=== PATIENT | male | born 1975 | race Caucasian/White ===

== ENCOUNTER 2018-08-13 10:04 | Emergency (ER) | payer SELFPAY ==
[~2018-08-13] VITALS: Ht 190.5 cm; Wt 120.9 kg
[~2018-08-13 10:04] MED LIST: ADVIL200 MG PO; NORCO 325 MG-7.1 TAB PO; PRILOSEC 20MG20 MG PO
[2018-08-13 10:09] VITALS: BP 178/88; TEMP 96.7
[2018-08-13 10:56] LABS: HEMATOCRIT 38.2 % (42.0-52.0); HEMOGLOBIN 12.6 g/dl (13.5-18.0); MEAN CELL VOLUME 88 fl (80.0-100.0); MEAN CORPUSCULAR HEMOGLOBIN 29 pg (27.0-31.0); MEAN CORPUSCULAR HGB CONC 33 g/dl (33.0-37.0); MEAN PLATELET VOLUME 10.4 fl (7.4-10.4); PLATELET COUNT 215 K/mm3 (130-400); RED BLOOD COUNT 4.34 M/mm3 (4.20-5.60); REDCELL DISTRIBUTION WIDTH-CV 13.2 % (11.5-14.5)
[2018-08-13 11:15] LABS: ALBUMIN 4.2 gm/dL (3.5-5.0); BILIRUBIN,TOTAL 0.6 mg/dL (0.0-1.0); CALCIUM 9.3 mg/dL (8.4-10.2); CREATININE, serum 0.76 (0.66-1.25); POTASSIUM 3.7 mmol/L (3.4-5.0); TOTAL PROTEIN 8.1 gm/dL (6.4-8.2)
[2018-08-13 11:43] LABS: C-REACTIVE PROTEIN 15.7 mg/dL (0.0-0.9)
[2018-08-13 12:11] LABS: BAND 19 % (0-10); EOSINOPHIL 2 % (0-4); LYMPHOCYTE 11 % (20.0-51.0); NEUTROPHILS 59 % (42.0-75.2); PLATELET ESTIMATE NORMAL (NORMAL)
[2018-08-13] MEDS ORDERED: AMOXICILLIN 8751 TAB PO (13:39)
[2018-08-13] MEDS ORDERED: PERCOCET 325 MG1 TA2 PO (13:39)
[2018-08-13 14:00] VITALS: PULSE 95
[2018-08-15] MEDS ORDERED: CIPRO 500MG TA500 MG PO (10:16)
[2018-08-18] MEDS ORDERED: BACTRIM DS 8001 TAB PO (21:38)
== END 2018-08-13 14:17 | disposition home or self-care (01) ==
LOC: COL.ER 10:04
PROVIDERS: Emergency Medicine
DX: K61.1 Rectal abscess (principal); F12.90 Cannabis use, unspecified, uncomplicated; F17.210 Nicotine dependence, cigarettes, uncomplicated; Z90.49 Acquired absence of other specified parts of digestive tract
CPT/HCPCS: J0295; J7030; Q9967

== ENCOUNTER 2019-04-20 12:48 | Emergency (ER) | payer SELFPAY ==
[~2019-04-20] VITALS: Ht 190.5 cm; Wt 113.6 kg
[~2019-04-20 12:48] MED LIST changes: +AMOXICILLIN 8751 TAB PO; +BACTRIM DS 8001 TAB PO; +CIPRO 500MG TA500 MG PO; +PERCOCET 325 MG1 TA2 PO
[2019-04-20 13:12] VITALS: TEMP 98.6
[2019-04-20] MEDS ORDERED: MEDROL 4MG DOSPA4 MG PO (14:38)
[2019-04-20] MEDS ORDERED: NORCO 325 MG-7.1 TAB PO (14:38)
[2019-04-20] MEDS ORDERED: LIDODERM 5% PATC1 EA TP (14:38)
[2019-04-20] MEDS ORDERED: FLEXERIL 1010 MG/TAB PO (14:38)
[2019-04-20 15:05] VITALS: BP 173/91; PULSE 76
== END 2019-04-20 14:58 | disposition home or self-care (01) ==
LOC: COL.ER 12:48
DX: S39.012A Strain of muscle, fascia and tendon of lower back, initial encounter (principal); M54.42 Lumbago with sciatica, left side; K21.9 Gastro-esophageal reflux disease without esophagitis; F17.210 Nicotine dependence, cigarettes, uncomplicated; X58.XXXA Exposure to other specified factors, initial encounter
CPT/HCPCS: J1885